=== PATIENT | female | born 2000 | race Two or more races ===

== ENCOUNTER 2019-11-06 14:34 | Inpatient (IN) | payer OTHER ==
[~2019-11-06] VITALS: Ht 149.9 cm; Wt 59.4 kg
[2019-11-13] MEDS ORDERED: IRON325 MG PO (11:14)
[2019-11-13] MEDS ORDERED: VITAMIN C500 M6 PO (11:14)
== END 2019-11-13 19:07 | disposition home or self-care (01) | DRG 807 ==
LOC: OB/GYN 11-10 11:00 → LDR 11-11 05:35 → OB/GYN 11-11 05:35
PROVIDERS: ADMIT Obstetrics & Gynecology
PROC: 10E0XZZ Delivery of Products of Conception, External Approach (ICD-10-PCS; principal; 2019-11-11)
PROC: 0UQMXZZ Repair Vulva, External Approach (ICD-10-PCS; 2019-11-11)
PROC: 10907ZC Drainage of Amniotic Fluid, Therapeutic from Products of Conception, Via Natural or Artificial Opening (ICD-10-PCS; 2019-11-11)
PROC: 3E0P7VZ Introduction of Hormone into Female Reproductive, Via Natural or Artificial Opening (ICD-10-PCS; 2019-11-11)
PROC: 3E033VJ Introduction of Other Hormone into Peripheral Vein, Percutaneous Approach (ICD-10-PCS; 2019-11-11)
PROC: 4A1HXCZ Monitoring of Products of Conception, Cardiac Rate, External Approach (ICD-10-PCS; 2019-11-11)
DX: O71.82 Other specified trauma to perineum and vulva (principal); Z37.0 Single live birth; Z3A.40 40 weeks gestation of pregnancy